=== PATIENT | female | born 1960 | race African-American/Black ===

== ENCOUNTER 2018-11-18 11:45 | Emergency (ER) | payer BC, OTHER ==
[2018-11-18 11:49] VITALS: BP 134/75; PULSE 99; TEMP 98.2; BMI 38.2
--- NOTE | 2018-11-18 12:50 | PDOC ---
History of Present Illness - General Chief Complaint: Back Pain Stated Complaint: SLIP AND FALL Time Seen by Provider: 11/18/18 12:34 - History of Present Illness Initial Comments: 11/18/18 12:49 58-year-old female with multiple comorbidities presents for evaluation of pelvic pain and sacral coccygeal pain after a fall in the shower last week. She did not hit her head. She was able to ambulate after her fall but over the last few days her pain is gotten worse. She has no radicular symptoms or loss of bowel or bladder function. No saddle paresthesias. Past History - Past Medical History Allergies/Adverse Reactions: Allergies Allergy/AdvReac Type Severity Reaction Status Date / Time No Known Allergies Allergy Verified 11/18/18 11:49 Home Medications: Ambulatory Orders Atorvastatin Ca [Lipitor] 40 mg PO HS 11/18/18 Losartan Potassium 100 mg PO DAILY 11/18/18 Metformin HCl [Glucophage] 1,000 mg PO BID 11/18/18 COPD: No Diabetes: Yes GI Disorders: Yes (gerd) HTN: Yes Hypercholesterolemia: Yes - Surgical History Cholecystectomy: Yes - Suicide/Smoking/Psychosocial Hx Smoking History: Never smoked Number of Cigarettes Smoked Daily: 2 Hx Alcohol Use: No Drug/Substance Use Hx: No Substance Use Type: Alcohol Review of Systems - Review of Systems Musculoskeletal: Yes: See HPI, Back Pain *Physical Exam - Vital Signs Last Vital Signs Temp Pulse Resp BP Pulse Ox 98.2 F 99 H 18 134/75 97 11/18/18 11:46 11/18/18 11:46 11/18/18 11:46 11/18/18 11:46 11/18/18 11:46 - Physical Exam Comments: 11/18/18 12:50 She has diffuse tenderness about her pelvic area she does ambulate with antalgia , there is an ecchymotic area at the lumbosacral junction no gross sensorimotor deficits in bilateral lower extremities 5 out of 5 strength. She is neurovascularly intact. Thighs and calves are soft and nontender. She does have a small area of ecchymosis on the medial aspect of her distal thigh. Moderate Sedation - Procedure Monitoring Vital Signs: Procedure Monitoring Vital Signs Temperature 98.2 F 11/18/18 11:46 Pulse Rate 99 H 11/18/18 11:46 Respiratory Rate 18 11/18/18 11:46 Blood Pressure 134/75 02/27/19 11:46 O2 Sat by Pulse Oximetry (%) 97 11/18/18 11:46 ED Treatment Course - RADIOLOGY Radiology Studies Ordered: Category Date Time Status COCCYX [RAD] Stat Radiology 11/18/18 12:46 Ordered PELVIS [RAD] Stat Radiology 11/18/18 12:46 Ordered SACRUM [RAD] Stat Radiology 11/18/18 12:46 Ordered Medical Decision Making - Medical Decision Making 11/18/18 15:44 Radiology called multiple times for review of x-rays. They still have not been read on my reading I do not see any acute fracture. This is a coccygeal contusion patient and follow-up with her internal medicine doctor as well as spine surgery for further evaluation and treatment options. *DC/Admit/Observation/Transfer Diagnosis at time of Disposition: Acute coccygeal pain - Discharge Dispostion Disposition: HOME Condition at time of disposition: Stable Decision to Admit order: No - Referrals Referrals: Robert Thompson MD [Primary Care Provider] - Smith Ramos MD [Staff Physician] - - Patient Instructions Additional Instructions: Follow-up with spine surgery for further evaluation and treatment options. Return to the emergency room for worsening symptoms. Also follow-up with internal medicine doctor for further evaluation and treatment options. - Post Discharge Activity
== END 2018-11-18 15:49 | disposition home or self-care (01) ==
LOC: JERFT 11:45
DX: M53.3 Sacrococcygeal disorders, not elsewhere classified (principal); W18.2XXA Fall in (into) shower or empty bathtub, initial encounter; Y93.E1 Activity, personal bathing and showering; Y92.031 Bathroom in apartment as the place of occurrence of the external cause; Y99.8 Other external cause status; I10 Essential (primary) hypertension; E11.9 Type 2 diabetes mellitus without complications; E78.00 Pure hypercholesterolemia, unspecified; K21.9 Gastro-esophageal reflux disease without esophagitis; Z79.84 Long term (current) use of oral hypoglycemic drugs
CPT/HCPCS: 72170-TC-FY; 72220-TC-FY; 99281-25

== ENCOUNTER 2023-01-03 15:44 | Inpatient (IN) | payer OTHER ==
[2023-01-03 15:58] VITALS: BMI 33.3
[2023-01-03] MEDS ORDERED: OCTREOTIDE ACETATE 50 MCG/1 ML - 1 ML VIAL SQ ONE (16:50)
[2023-01-03] MEDS ORDERED: GLUCAGON 1 MG KIT IM ONE (16:53)
[2023-01-03] MEDS ORDERED: GLUCAGON 1 MG KIT ONE (16:59)
[2023-01-03] MEDS ORDERED: DEXTROSE 5%-NORMAL SALINE 1,000 ML IV SCH (17:00)
[2023-01-03] MEDS ORDERED: OCTREOTIDE ACETATE 100 MCG/1 ML ONE (17:00)
[2023-01-03] MEDS ORDERED: DEXTROSE 50%-WATER 25 GM/50 ML DISP.SYRIN ONE (17:05)
[2023-01-03 17:57] LABS: BASO % 0.4 % (0-2.0); EOS % 0.5 % (0-4.5); HEMATOCRIT 40.3 % (32.4-45.2); HEMOGLOBIN 13.3 GM/dL (10.7-15.3); LYMPH % 16.1 % (8-40); MCH 27.7 pg (25.7-33.7); MEAN CELL VOLUME 83.8 fl (80-96); MEAN PLT VOLUME 7.9 fl (7.5-11.1); MONO % 9.6 % (3.8-10.2); NEUT % 73.4 % (42.8-82.8); PLATELET COUNT 307 10^3/uL (134-434); RDW 14.7 % (11.6-15.6); WHITE BLOOD COUNT 11.4 K/mm3 (4.0-10.0)
[2023-01-03 18:05] LABS: BLOOD UREA NITROGEN 30.6 mg/dL (7-18); CALCIUM 9.7 mg/dL (8.5-10.1)
[2023-01-03 18:07] LABS: CREATININE 1.4 mg/dL (0.55-1.3)
[2023-01-03 18:09] LABS: BILIRUBIN,TOTAL 0.3 mg/dL (0.2-1); TOT PROT 8.2 g/dl (6.4-8.2)
[2023-01-03] MEDS ORDERED: DEXTROSE 50%-WATER - 25 GM/50 ML VIAL IVPUSH PRN (18:47)
[2023-01-03] MEDS ORDERED: LACTATED RINGERS SOLUTION 1,000 ML/1,000 ML INFUS.BAG IV SCH (23:30)
[2023-01-04] MEDS ORDERED: OCTREOTIDE ACETATE 50 MCG/1 ML - 1 ML VIAL SQ ONE ×2 (01:30→08:00)
[2023-01-04] MEDS ORDERED: OCTREOTIDE ACETATE 50 MCG/1 ML - 1 ML VIAL IVPUSH ONE (01:30)
[2023-01-04] MEDS: ACETAMINOPHEN 325 MG TABLET (FP) PO PRN ×2 (05:03→21:11)
[2023-01-04] MEDS: HEPARIN NA (PORCINE) 5,000 UNITS/ML 1ML VIAL SQ SCH ×4 (06:22→21:16)
[2023-01-04 07:11] LABS: BASO % 0.3 % (0-2.0); EOS % 1.3 % (0-4.5); HEMATOCRIT 37.8 % (32.4-45.2); HEMOGLOBIN 12.7 GM/dL (10.7-15.3); LYMPH % 14.8 % (8-40); MCH 27.9 pg (25.7-33.7); MCHC 33.7 g/dl (32.0-36.0); MEAN PLT VOLUME 8.2 fl (7.5-11.1); MONO % 8.4 % (3.8-10.2); NEUT % 75.2 % (42.8-82.8); PLATELET COUNT 286 10^3/uL (134-434); RBC 4.56 M/mm3 (3.60-5.2); RDW 14.4 % (11.6-15.6); WHITE BLOOD COUNT 9.4 K/mm3 (4.0-10.0)
[2023-01-04 07:36] LABS: PHOSPHOROUS 3.6 mg/dL (2.5-4.9)
[2023-01-04 08:56] LABS: CALCIUM 9.6 mg/dL (8.5-10.1)
[2023-01-04 09:00] LABS: CREATININE 1.3 mg/dL (0.55-1.3)
[2023-01-04] MEDS: LOSARTAN POTASSIUM 50 MG TABLET PO SCH (09:36)
[2023-01-04] MEDS: MUPIROCIN 2% TOPICAL OINTMENT FOR DECOLONIZATION NS SCH ×2 (09:36→21:16)
[2023-01-04] MEDS: ATENOLOL 50 MG TABLET (FP) PO SCH (09:37)
[2023-01-04] MEDS: CHLORTHALIDONE 25 MG TABLET PO SCH (09:37)
[2023-01-04] MEDS: DULoxetine HCL 30 MG CAPSULE.DR PO SCH (09:37)
[2023-01-04] MEDS: prednisoLONE ACETATE 1% OPHTH SUSP 5 ML BOTTLE OU SCH (09:37)
[2023-01-04] MEDS: amLODIPine BESYLATE 5 MG TABLET (FP) PO SCH (09:37)
[2023-01-04] MEDS ORDERED: CHLORHEXIDINE GLUCONATE 4% CLEANSER FOR DECOLONIZATION TP SCH (22:00)
[2023-01-04] MEDS ORDERED: ATORVASTATIN CA 20 MG TABLET (FP) PO SCH (22:00)
[2023-01-05] MEDS: HEPARIN NA (PORCINE) 5,000 UNITS/ML 1ML VIAL SQ SCH (06:10)
[2023-01-05 06:27] VITALS: TEMP 98.1
[2023-01-05 07:03] LABS: BASO % 0.3 % (0-2.0); EOS % 1.9 % (0-4.5); HEMATOCRIT 40.3 % (32.4-45.2); HEMOGLOBIN 13.8 GM/dL (10.7-15.3); LYMPH % 18.2 % (8-40); MCH 28.1 pg (25.7-33.7); MCHC 34.2 g/dl (32.0-36.0); MEAN CELL VOLUME 82.2 fl (80-96); MEAN PLT VOLUME 7.6 fl (7.5-11.1); NEUT % 68.6 % (42.8-82.8); PLATELET COUNT 308 10^3/uL (134-434); RDW 14.6 % (11.6-15.6); WHITE BLOOD COUNT 8.3 K/mm3 (4.0-10.0)
[2023-01-05 07:22] LABS: CALCIUM 9.5 mg/dL (8.5-10.1)
[2023-01-05 07:23] LABS: BLOOD UREA NITROGEN 28.2 mg/dL (7-18)
[2023-01-05 07:27] LABS: CREATININE 1.5 mg/dL (0.55-1.3)
[2023-01-05] MEDS: ACETAMINOPHEN 325 MG TABLET (FP) PO PRN (08:02)
[2023-01-05 09:16] VITALS: RESP 20
[2023-01-05 09:17] VITALS: BP 169/82; PULSE 80
[2023-01-05] MEDS: amLODIPine BESYLATE 5 MG TABLET (FP) PO SCH (09:37)
[2023-01-05] MEDS: LOSARTAN POTASSIUM 50 MG TABLET PO SCH (09:37)
[2023-01-05] MEDS: CHLORTHALIDONE 25 MG TABLET PO SCH (09:37)
[2023-01-05] MEDS: DULoxetine HCL 30 MG CAPSULE.DR PO SCH (09:38)
[2023-01-05] MEDS: prednisoLONE ACETATE 1% OPHTH SUSP 5 ML BOTTLE OU SCH (09:39)
[2023-01-05] MEDS: ATENOLOL 50 MG TABLET (FP) PO SCH (09:39)
[2023-01-05] MEDS: MUPIROCIN 2% TOPICAL OINTMENT FOR DECOLONIZATION NS SCH (09:40)
[2023-01-05] MEDS ORDERED: POTASSIUM CHLORIDE TABS 20 MEQ TABLET.ER (FP) PO SCH (10:00)
== END 2023-01-05 13:45 | disposition home or self-care (01) | DRG 420 ==
LOC: JER 15:44 → JERBED 18:37 → J2W 22:59
PROVIDERS: ADMIT Internal Medicine Pulmonary Disease; ATTEND Internal Medicine
DX: E11.649 Type 2 diabetes mellitus with hypoglycemia without coma (principal); I10 Essential (primary) hypertension; E78.5 Hyperlipidemia, unspecified; I45.10 Unspecified right bundle-branch block; K21.9 Gastro-esophageal reflux disease without esophagitis; I16.0 Hypertensive urgency; F32.A Depression, unspecified; E11.42 Type 2 diabetes mellitus with diabetic polyneuropathy; F12.90 Cannabis use, unspecified, uncomplicated; T38.3X5A Adverse effect of insulin and oral hypoglycemic [antidiabetic] drugs, initial encounter; I45.2 Bifascicular block
CPT/HCPCS: 0241U-QW; 36415; 80048; 80053; 82962; 83036; 83735; 84100; 85025; 85027; 93005; 93010; 99291; J1644

== ENCOUNTER 2024-07-21 04:26 | Day surgery (SDC) | payer OTHER ==
[2024-07-16 17:37] VITALS: BMI 34.3
[2024-07-21] MEDS ORDERED: PROPOFOL 20 ML ONE (14:35)
[2024-07-21] MEDS ORDERED: MIDAZOLAM HCL 2 MG/2 ML SINGLE DOSE VIAL ONE (14:35)
[2024-07-21] MEDS ORDERED: ceFAZolin SODIUM 1 GM VIAL ONE (14:45)
[2024-07-21] MEDS: ceFAZolin SODIUM 1 GM VIAL IVPB ONE (14:46)
[2024-07-21] MEDS ORDERED: ONDANSETRON 4 MG/2 ML VIAL IVPUSH PRN (15:06)
[2024-07-21] MEDS ORDERED: ACETAMINOPHEN 1000 MG/100 ML BAG IVPB PRN (15:07)
[2024-07-21] MEDS ORDERED: SODIUM CHLORIDE 1,000 ML IV SCH (15:15)
[2024-07-21 15:32] VITALS: TEMP 97.6
[2024-07-21 15:49] VITALS: RESP 18
[2024-07-21 16:29] VITALS: BP 132/73; PULSE 72
== END 2024-07-21 16:37 | disposition home or self-care (01) ==
LOC: JASU-SURG 04:26
PROVIDERS: ATTEND Urology
PROC: 0TVC8ZZ Restriction of Bladder Neck, Via Natural or Artificial Opening Endoscopic (ICD-10-PCS; principal; 2024-07-21 15:00)
DX: N36.42 Intrinsic sphincter deficiency (ISD) (principal); N39.3 Stress incontinence (female) (male)
CPT/HCPCS: 51715; L8606; 94760